=== PATIENT | female | born 1980 | race Hispanic/Latino ===

== ENCOUNTER → 2018-02-05 | Outpatient (CLI) | payer MEDICAID ==
[~2018-02-05] MED LIST: IOHEXOL-350 50ML VIAL IV ONE; TYL3 PO
== END | disposition home or self-care (01) ==
LOC: OIH 07:38
PROVIDERS: ATTEND Family Medicine
DX: N20.0 Calculus of kidney (principal); N28.1 Cyst of kidney, acquired
CPT/HCPCS: 74178; Q9967 ×2

== ENCOUNTER 2023-05-28 18:16 | Emergency (ER) | payer MEDICAID, OTHER ==
[~2023-05-28] VITALS: Ht 167.6 cm; Wt 106.6 kg
[~2023-05-28 18:16] MED LIST changes: -IOHEXOL-350 50ML VIAL IV ONE
[2023-05-28 20:06] LABS: BASOPHILS # (AUTO) 0.06 K/uL (0.00-0.20); BASOPHILS % (AUTO) 0.3 % (0.0-5.0); EOSINOPHILS # (AUTO) 0.02 K/uL (0.00-0.70); EOSINOPHILS % (AUTO) 0.1 % (0.0-8.0); HEMATOCRIT 39.3 % (36-48); IMMATURE GRANULOCYTE ABSOLUTE 0.15 K/uL (0-1); LYMPHOCYTES # (AUTO) 1.6 K/uL (1.0-4.8); LYMPHOCYTES % (AUTO) 7.1 % (21.0-51.0); MEAN CORPUSCULAR HEMOGLOBIN 31.5 pg (27.0-33.0); MEAN CORPUSCULAR HGB CONC 35.4 g/dL (32.0-36.0); MEAN CORPUSCULAR VOLUME 89.1 fL (79-99); MONOCYTES # (AUTO) 1.2 K/uL (0.1-1.0); MONOCYTES % (AUTO) 5.1 % (3.0-13.0); NEUTROPHILS # (AUTO) 19.6 K/uL (1.8-7.7); NEUTROPHILS % (AUTO) 86.7 % (40.0-77.0); PLATELET COUNT (AUTO) 364 K/uL (130-400); RED BLOOD CELL COUNT(AUTO) 4.41 MIL/uL (4.00-5.50); RED CELL DISTRIBUTION WIDTH 12.9 % (11.0-15.5); WHITE BLOOD COUNT (AUTO) 22.6 K/uL (4.8-10.8)
[2023-05-28] MEDS: KETOROLAC 30MG VIAL (30MG/ML) IVP ONE (20:46)
[2023-05-28] MEDS: ONDANSETRON 4MG INJ IVP ONE (20:46)
[2023-05-28] MEDS: 0.9%NACL 1000ML 1,000 ML IV ONE (20:46)
[2023-05-28] MEDS: CEFTRIAXONE 1G VIAL IVPB SCH (20:46)
[2023-05-28 20:52] LABS: APPEARANCE,URINE CLOUDY (CLEAR); BILIRUBIN,URINE NEGATIVE (NEGATIVE); COLOR,URINE YELLOW (YELLOW); GLUCOSE, URINE (UA) NEGATIVE (NEGATIVE); KETONES,URINE NEGATIVE (NEGATIVE); LEUKOCYTE ESTERASE ,URINE 250 Leu/uL (NEGATIVE); NITRATE,URINE NEGATIVE (NEGATIVE); OCCULT BLOOD,URINE MODERATE (NEGATIVE); PROTEIN,URINE 30 mg/dL (NEGATIVE); UROBILINOGEN,URINE 0.2 mg/dL (0.2-1.0)
[2023-05-28 20:53] LABS: ADD UA MICROSCOPIC YES
[2023-05-28 20:55] LABS: ALBUMIN 3.2 g/dL (3.5-5.0); BILIRUBIN,TOTAL 0.9 mg/dL (0.2-1.0); CREATININE 0.8 mg/dL (0.5-1.5); POTASSIUM 4.9 mmol/L (3.5-5.1)
[2023-05-28 20:56] LABS: HCG,QUALITATIVE URINE NEGATIVE (NEGATIVE)
[2023-05-28 20:58] LABS: BACTERIA,URINE RARE /HPF (None Seen); MUCUS,URINE RARE LPF (None Seen); SQUAMOUS EPITHELIAL CELL,UR FEW /HPF (0-2); UNCLASSIFIED CRYSTAL 1 /HPF (None Seen)
[2023-05-28] MEDS ORDERED: 0.9%NACL 1000ML 1,000 ML IV SCH (22:30)
[2023-05-28] MEDS ORDERED: IBUP-2070 PO (22:59)
[2023-05-28] MEDS ORDERED: TAMS-1 PO (22:59)
[2023-05-28] MEDS ORDERED: CEPH500B PO (22:59)
[2023-05-28 23:02] VITALS: BP 142/58; PULSE 60; RESP 18; O2SAT 98
== END 2023-05-28 23:08 | disposition home or self-care (01) ==
LOC: EDH 18:16
DX: N20.0 Calculus of kidney (principal); K43.9 Ventral hernia without obstruction or gangrene; R16.0 Hepatomegaly, not elsewhere classified; N39.0 Urinary tract infection, site not specified
CPT/HCPCS: 99285; 74176; 96365; 76705; 96375; 96366; 80053; 83690; 85025; 87040 ×2; 87088; 83605; 81001; 81025; 36415; J7030; J0696; J2405; J1885